=== PATIENT | male | born 1960 | race Caucasian/White ===

== ENCOUNTER 2019-04-30 12:37 | Outpatient (CLI) | payer BC ==
--- NOTE | 2019-04-30 18:09 | MRI ---
MRI CERVICAL SPINE WITHOUT CONTRAST: History: Cervical radicular pain. Injury. FINDINGS: There is slight loss of anterior height of the C5 vertebra with edema present which may indicate acut e compression. Degenerative changes with mild loss of disc space at C4-5 is noted. The other cervical vertebrae maintain height and exhibit normal signal. No significant disc bulge seen at C2-3 or C3-4. C4-5: No significant disc bulge or protrusion. Degenerative disc changes with mild loss of disc space . Evidence of mild foraminal narrowing on the left possibly due to asymmetric cyst or uncinate hypert rophy. C5-6: Mild disc bulge mildly effaces the anterior subarachnoid space. No cord impingement. No evidenc e of foraminal encroachment or stenosis. C6-7: No significant abnormality. Cord signal is normal. No evidence of edema. IMPRESSION: Slight anterior compression at C5 with vertebral body edema may represent mild acute compression. Deg enerative change at the C4-5 disc space. Mild disc bulge at C5-6 as described. No disc protrusion or herniation. Evidence of left foraminal encroachment at C4-5. POS: [facility]
--- NOTE | 2019-04-30 19:47 | MRI ---
THORACIC SPINE MRI WITHOUT CONTRAST: Date: 04-30-19 Comparison: None. History: Midback pain. Technique: Multiplanar, multisequence MR imaging of the thoracic spine obtained without contrast. FINDINGS: The sagittal STIR imaging demonstrates no focal area of osseous marrow edema. Thoracic vertebral body height and alignment appears normal. No significant central canal or neural foraminal stenosis is noted within the thoracic spine. There i s right lateral osteophyte formation at the T9-10 level. No abnormal signal intensity is identified within the thoracic cord. Numerous incompletely evaluated T2 hyperintensities are noted within the kidneys suggesting bilateral renal cysts. IMPRESSION: No acute findings. POS: [facility]
--- NOTE | 2019-04-30 20:34 | MRI ---
MRI LUMBAR SPINE WITHOUT CONTRAST: 04/30/2019 HISTORY: Mid back pain. Lumbar radicular pain. COMPARISON: None. TECHNIQUE: Multiplanar, multisequence MR imaging of the lumbar spine is obtained without contrast. FINDINGS: Sagittal STIR imaging demonstrates no focal area of osseous marrow edema. On the basis of five lumbar type vertebral bodies the conus medullaris terminates at the L1-L2 level. No anterolisthesis or retr olisthesis is noted within the lumbar spine. T12-L1: No significant central canal or neural foraminal stenosis. Mild disk space narrowing. L1-L2: Mild disk space narrowing. Mild bilateral facet hypertrophy. No significant central canal or n eural foraminal stenosis. L2-L3: There is disk space narrowing and disk desiccation with mild disk bulge. There is mild bilater al facet hypertrophy. No significant central canal or neural foraminal stenosis. L3-L4: Mild bilateral facet hypertrophy. Intervertebral disk height and signal intensity is within no rmal limits with no significant central canal or neural foraminal stenosis. L4-L5: Mild bilateral facet hypertrophy. There is disk space narrowing and disk desiccation with mild disk bulge. No significant central canal stenosis. Moderate left and severe right neural foraminal stenosis noted at L4-L5. L5-S1: There is mild disk bulge. There is bilateral facet hypertrophy with moderate bilateral neural foraminal stenosis, right greater than left. Numerous T2 hyperintensities within the kidney suggests multiple bilateral renal cysts. IMPRESSION: Lumbar spine degenerative change as detailed above, which includes significant bilateral neural david inal stenosis at L4-L5 and at L5-S1, as detailed above. POS: [facility]
== END 2019-04-30 12:38 | disposition home or self-care (01) ==
LOC: TBSIIMAG 12:37
PROVIDERS: ATTEND Neurological Surgery
DX: M47.26 Other spondylosis with radiculopathy, lumbar region (principal); M47.22 Other spondylosis with radiculopathy, cervical region; M54.6 Pain in thoracic spine; M48.061 Spinal stenosis, lumbar region without neurogenic claudication; M48.07 Spinal stenosis, lumbosacral region; M48.02 Spinal stenosis, cervical region; M50.122 Cervical disc disorder at C5-C6 level with radiculopathy; R60.0 Localized edema
CPT/HCPCS: 72141; 72146; 72148